=== PATIENT | male | born 2005 ===

== ENCOUNTER 2023-04-09 11:03 | Outpatient (CLI) | payer OTHER ==
--- NOTE | 2023-04-09 12:54 | XRAY Report ---
PROCEDURE: Chest 2 View X-Ray INDICATIONS: POSTERIOR PAIN THORACIC REGION TECHNIQUE: 2 views of the chest were acquired. COMPARISON: None. FINDINGS: Surgical changes and devices: None. Lungs and pleura: No pleural effusions or pneumothorax. Lungs are clear. Mediastinum: Mediastinal contours appear normal. Heart size is normal. Bones and chest wall: No suspicious bony lesions. Overlying soft tissues appear unremarkable. IMPRESSION: No acute cardiopulmonary process. Reviewed by: Kira Trejo MD on 04/09/2023 12:53 PM PST Approved by: Kira Trejo MD on 04/09/2023 12:53 PM PST Station ID: [id number]
== END 2023-04-09 23:59 | disposition home or self-care (01) ==
LOC: DI.N 11:03
PROVIDERS: ATTEND Specialist
DX: M54.6 Pain in thoracic spine (principal)